=== PATIENT | male | born 1975 | race Caucasian/White ===

== ENCOUNTER 2016-10-04 21:58 | Inpatient (IN) | payer OTHER ==
[~2016-10-04] VITALS: Ht 185.4 cm; Wt 77.1 kg
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
--- NOTE | ~2016-10-04 | CR63 ---
[facility] A Service of [facility] & [facility] RADIOLOGY TEXT RESULTS PATIENT: JAVIER GUZMAN LOCATION: A 201-01 : [birth year] UNIT #: [id number] AGE: [address]: Huy Mills MD SEX: M ORDER DR: [id number] [facility] [address] [place], [place] [address] [id number] I MR#: [id number] Acc #: [id number] NAME: JAVIER GUZMAN : 1975 SEX: M STUDY DATE/TIME: 10/05/2016 7:25 UNIT: [facility] ROOM: 201 STUDY DESCRIPTION: CR Chest 2 View Attending Physician: Huy Mills M.D. Ordering Physician: Bambi Carney M.D. Primary Care Physician: Primary Care Physician No MEDICAL IMAGING REPORT This report is preliminary unless electronic signature is present EXAM Two-view chest INDICATION Fever and chills. Hypernatremia. Shortness of air. FINDINGS Two views of the chest without comparison. Heart and mediastinal contours normal. There is mild pulmonary hyperinflation. No focal consolidation. No pleural effusion. IMPRESSION Mild pulmonary hyperinflation suggesting component of obstructive lung disease. No focal consolidation. Dictated by... Ric Wiggins M.D. THIS IS AN ELECTRONICALLY VERIFIED REPORT Ric Wiggins M.D. at 10/05/2016 2:53 PM JOSH/spenser TD: 10/05/2016 14:00 JOB #: [id number] MEDICAL IMAGING REPORT Page 1 of 1 COPY
--- NOTE | ~2016-10-04 | CT15 ---
[facility] A Service of [facility] & [facility] RADIOLOGY TEXT RESULTS PATIENT: JAVIER GUZMAN LOCATION: [place] [address] : [birth year] UNIT #: [id number] AGE: [address]: Kaya Cameron MD SEX: M ORDER DR: [id number] [address] [id number] [place], [place] [address] [id number] I MR#: [id number] Acc #: [id number] NAME: JAVIER GUZMAN : 1975 SEX: M STUDY DATE/TIME: 10/10/2016 14:05 UNIT: [facility] ROOM: [facility] STUDY DESCRIPTION: CT Angio Chest Attending Physician: Kaya Cameron M.D. Ordering Physician: Hien Chavez M.D. Primary Care Physician: Primary Care Physician No MEDICAL IMAGING REPORT This report is preliminary unless electronic signature is present EXAM CTA chest and abdomen HISTORY Refer below. FINDINGS Please refer to the CTA abdomen report on the same date for complete details. Dictated by... Singh Dobbins M.D. THIS IS AN ELECTRONICALLY VERIFIED REPORT Singh Dobbins M.D. at 10/16/2016 9:10 AM ALIN/maliha TD: 10/11/2016 17:07 JOB #: [id number] MEDICAL IMAGING REPORT Page 1 of 1 COPY
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
--- NOTE | ~2016-10-04 | EKG ---
PATIENT: JAVIER GUZMAN UNIT #: [id number] Ventricular Rate: 106 BPM Atrial Rate: 106 BPM P-R Interval: 134 ms QRS Duration: 90 ms Q-T Interval: 342 ms QTC Calculation(Bezet): 454 ms P Benton: 66 degrees Calculated R Benton: 89 degrees Calculated T Benton: 60 degrees Diagnosis Line: Sinus tachycardia Diagnosis Line: Otherwise normal ECG Diagnosis Line: No previous ECGs available Diagnosis Line: Confirmed by JC CRUZ MD ([id number]) on Diagnosis Line: 10/05/2016 10:35:55 PM INTERPRETING MD: DONNIE
--- NOTE | ~2016-10-04 | CT96 ---
[facility] A Service of [facility] & [facility] RADIOLOGY TEXT RESULTS PATIENT: JAVIER GUZMAN LOCATION: C2A 201-01 : [birth year] UNIT #: [id number] AGE: [address]: Huy Mills MD SEX: M ORDER DR: [id number] [facility] [address] [place], [place] [address] [id number] I MR#: [id number] Acc #: [id number] NAME: JAVIER GUZMAN : 1975 SEX: M STUDY DATE/TIME: 10/04/2016 23:58 UNIT: C2A ROOM: 201 STUDY DESCRIPTION: CT Lumbar Spine W Cont Attending Physician: Bambi Carney M.D. Ordering Physician: Marco Blas M.D. Primary Care Physician: Primary Care Physician No MEDICAL IMAGING REPORT This report is preliminary unless electronic signature is present EXAM Lumbar spine CT 10/04 23:58 INDICATION Fever and low back pain for 4-5 days. TECHNIQUE Axial images were obtained through the lumbar spine following IV contrast administration. Multiplanar reformats were obtained. No comparison. This CT examination was performed with one or more of the following radiation dose reduction techniques: automatic exposure control, adjustment of mA and/or kV according to patient size, and iterative reconstruction. FINDINGS There are no fractures. Alignment is normal in the sagittal plane. There is mild levoscoliosis. No clear abnormal enhancement is identified. At L5-S1, there is a broad-based posterior disc bulge with bilateral facet arthropathy. This results in mild bilateral foraminal stenosis. At L4-5, there is bilateral facet arthropathy and ligamentum flavum hypertrophy. There is a broad-based posterior disc bulge with a more focal right posterolateral disc herniation. This is causing severe central canal stenosis to the right of midline and is also narrowing both foramina to at least a moderate degree. This is presumably the symptomatic level. At L3-4, there is a mild broad-based posterior disc bulge. There is facet arthropathy and ligamentum flavum hypertrophy. There is very mild narrowing of both foramina. At L2-3, there is facet disease and ligamentum flavum hypertrophy. [facility] A Service of [facility] & [facility] RADIOLOGY TEXT RESULTS PATIENT: JAVIER GUZMAN LOCATION: A 201-01 : [birth year] UNIT #: [id number] AGE: [address]: Huy Mills MD SEX: M ORDER DR: Minimal disc bulge. No significant central canal or foraminal stenosis. At L1-2, the disc is normal. There is some mild facet disease. IMPRESSION 1. No fracture or malalignment. 2. There is a broad-based disc bulge at L4-5 with a more focal right posterolateral herniation. This is causing severe right-side central canal stenosis in addition to bilateral neural foraminal narrowing. This is presumably the symptomatic level. 3. Multilevel degenerative disc disease and facet arthropathy as detailed above. 4. No pathologic contrast enhancement. 5. Findings could be further assessed with outpatient lumbar MRI if clinically indicated. Dictated by... Victoriano Perez Jr., M.D. THIS IS AN ELECTRONICALLY VERIFIED REPORT Victoriano Perez Jr., M.D. at 10/06/2016 4:22 AM LAWANDA/rteva TD: 10/05/2016 06:59 JOB #: [id number] MEDICAL IMAGING REPORT Page 1 of 1 COPY
--- NOTE | ~2016-10-04 | MR112 ---
[facility] A Service of [facility] RADIOLOGY TEXT RESULTS PATIENT: JAVIER GUZMAN LOCATION: [facility]-01 : [birth year] UNIT #: [id number] AGE: [address]: Huy Mills MD SEX: M ORDER DR: [id number] [facility] [address] [place], [place] [address] [id number] I MR#: [id number] Acc #: [id number] NAME: JAVIER GUZMAN : 1975 SEX: M STUDY DATE/TIME: 10/05/2016 11:17 UNIT: C2A ROOM: 201 STUDY DESCRIPTION: MR Lumbar WWo Contrast Attending Physician: Huy Mills M.D. Ordering Physician: Bambi Carney M.D. Primary Care Physician: No Primary Care Physician MRI CENTER REPORT This report is preliminary unless electronic signature is present. EXAM Lumbar spine MRI with and without contrast. DATE OF STUDY 10/05/2016 PROCEDURE Routine lumbar spine MRI with and without contrast. COMPARISON CT lumbar spine, 10/04/2016. CLINICAL HISTORY Fever and low back pain for 4-5 days, primarily right-sided. FINDINGS There is a slight levoscoliosis, possibly positional. Alignment is otherwise normal. Bone marrow signal is normal and the distal cord and conus are normal in position and appearance. At 1-2, and 2-3, the discs, canal and foramina are normal. At 3-4, the disc as well preserved. There is some mild facet arthropathy. There is no canal stenosis, and there is no right and borderline left foraminal narrowing. At 4-5, there is a right paracentral disc protrusion. There is mild overall canal stenosis with particular impingement on the right-sided lower lumbar nerve roots. The L4 root escapes above this, but there is heavy lateral recess impingement. There is mild right foraminal stenosis and borderline left foraminal narrowing. At L5-S1, there is a slight disc bulge, but no canal stenosis. There is slight, if any, left lateral recess compromise. There is [facility] A Service of [facility] RADIOLOGY TEXT RESULTS PATIENT: JAVIER GUZMAN LOCATION: B 450- : [birth year] UNIT #: [id number] AGE: [address]: Huy Mills MD SEX: M ORDER DR: [id number] left and no right foraminal stenosis. No areas of abnormal enhancement are seen. IMPRESSION Right paracentral disc protrusion at 4-5 with nerve root impingement particularly in the lateral recess and mild canal stenosis, tiny left paracentral protrusion at 5-1 with possible slight left lateral recess compromise. Dictated by... Tee Rendon M.D. THIS IS AN ELECTRONICALLY VERIFIED REPORT Tee Rendon M.D. at 10/07/2016 4:50 PM GISELL/traci TD: 10/05/2016 15:50 JOB #: [id number] MRI CENTER REPORT Page 1 of 1 COPY
--- NOTE | ~2016-10-04 | CT2 ---
[facility] A Service of [facility] & [facility] RADIOLOGY TEXT RESULTS PATIENT: JAVIER GUZMAN LOCATION: C2A 201- : 73 UNIT #: [id number] AGE: [address]: Huy Mills MD SEX: M ORDER DR: [id number] [facility] [address] [place], [place] [address] [id number] I MR#: [id number] Acc #: [id number] NAME: JAVIER GUZMAN : 1975 SEX: M STUDY DATE/TIME: 10/04/2016 23:55 UNIT: C2A ROOM: 201 STUDY DESCRIPTION: CT Abd and Pelv W Cont Attending Physician: Bambi Carney M.D. Ordering Physician: Marco Blas M.D. Primary Care Physician: Primary Care Physician No MEDICAL IMAGING REPORT This report is preliminary unless electronic signature is present EXAM CT abdomen and pelvis 10/04 23:55 INDICATION Fever, low back pain worse on the right side. Pain over the last 4-5 days. Left side abdominal pain. TECHNIQUE Axial images were obtained through the abdomen and pelvis following IV contrast administration. Multiplanar reformats were obtained. No comparison. This CT examination was performed with one or more of the following radiation dose reduction techniques: automatic exposure control, adjustment of mA and/or kV according to patient size, and iterative reconstruction. FINDINGS ABDOMEN: There is some dependent atelectasis in the right lower lobe. Spleen is enlarged with a clcz-mo-loxp length of 15 cm. Remaining solid organs are normal. GI tract evaluation is limited by the lack of oral contrast as well as the lack of intraabdominal fat as a natural contrast medium. No bowel obstruction is seen. No definite free fluid. Gallbladder is unremarkable and there is no biliary obstruction. PELVIS: Urinary bladder is normal. Unopacified GI tract grossly normal. The appendix is normal. For a description of findings in the lumbar spine, please see the L-spine CT report dictated separately. IMPRESSION 1. Splenomegaly. 2. GI tract evaluation is limited by both the lack of oral contrast as well as the lack of intraabdominal fat as a natural contrast medium. Unopacified GI tract is grossly normal. No bowel obstruction or definitive bowel wall thickening is seen. The appendix is normal. [facility] A Service of [facility] RADIOLOGY TEXT RESULTS PATIENT: JAVIER GUZMAN LOCATION: [facility] 201-01 : [birth year] UNIT #: [id number] AGE: [address]: Huy Mills MD SEX: M ORDER DR: 3. The remainder of the abdomen and pelvis CT is within normal limits as well. There is some minimal right lower lobe atelectasis. Dictated by... Victoriano Perez Jr., M.D. THIS IS AN ELECTRONICALLY VERIFIED REPORT Victoriano Perez Jr., M.D. at 10/06/2016 4:22 AM LAWANDA/treva TD: 10/05/2016 06:55 JOB #: [id number] MEDICAL IMAGING REPORT Page 1 of 1 COPY
--- NOTE | ~2016-10-04 | DS ---
Unit #: [id number] #: [id number] Patient: JAVIER GUZMAN [id number] [address] [address] [id number] I MR#: [id number] NAME: JAVIER GUZMAN ROOM: 463 Age: 40 Sex: M Admission Date: 10/05/2016 : 1975 Discharge Date: 10/11/2016 Attending Physician: Kaya Cameron M.D. Primary Care Physician: No Primary Care Physician DISCHARGE SUMMARY PRINCIPAL DIAGNOSES 1. Methicillin-sensitive Staphylococcus aureus bacteremia with associated bilateral septic pulmonary emboli. 2. Intravenous drug use. 3. Polysubstance abuse including amphetamine, marijuana and heroin. 4. Hypovolemic hyponatremia now resolved. 5. Mild cellulitis of right ankle now resolved. 6. Tobaccoism. 7. Homelessness. CONSULTANTS 1. Dr. Cyr, infectious disease. 2. Dr. Chavez, cardiology. PROCEDURES 1. JALYN, on October 10, 2016 with an ejection fraction of 50% to 55%. Mild tricuspid regurgitation noted. No evidence of vegetation. No clot in the left atrial appendage. Moderate atherosclerotic plaque in the aorta. Mildly dilated aortic root. 2. CT scan of the abdomen and pelvis with dilatation of the aortic root at 4.7 cm. There is no obvious evidence of abscess. Bilateral septic pulmonary emboli were noted. 3. CT scan of abdomen and pelvis with contrast on October 04, [address] of the lumbar spine with contrast on October 04, 2016 with a broad-based disk bulge at L4-L5 with more focal right posterolateral herniation. This is causing right-sided central canal stenosis and bilateral neural foraminal narrowing. 5. Chest x-ray on October 05, 2016 with pulmonary hyperinflation. 6. MRI of lumbar spine with and without contrast on October 05, 2016 with right paracentral disc protrusion at L4-5 with nerve impingement in the lateral recess and mild canal stenosis. CLINICAL HISTORY AND HOSPITAL COURSE Mr. Guzman is a 40-year-old male who presents to the emergency department with back pain. He also has a history of IV drug use. In the emergency department he was found to be hyponatremic with a sodium level of 118. A urine drug screen was positive for opiates, marijuana and amphetamines. A CT scan of the lumbar spine revealed a degenerative disk disease but no other acute findings. Patient was subsequently admitted. In regard to the patient's complaints of back pain, he did undergo MRI of the lumbar spine given his IV drug abuse. There is no evidence of Unit #: [id number] #: [id number] Patient: JAVIER GUZMAN abscess. His back pain is currently resolved. Blood cultures done upon admission did ultimately grow methicillin-sensitive Staph aureus and the patient was initially placed on vancomycin and antibiotics have subsequently been changed to nafcillin by ID. Blood cultures from October 06 have been negative. Plan is for patient to complete two weeks of IV Rocephin as an outpatient at short stay. In regard to the patient's hyponatremia, with IV fluids this has resolved. The patient is agreeable to some treatment on an outpatient basis and will be discharged home later today. DISCHARGE CONDITION Stable. DISCHARGE STATUS Discharge to home with plans for IV antibiotic via short stay. DISCHARGE MEDICATIONS Rocephin 2 g IV q.24 h. through October 19, 2016. DISCHARGE INSTRUCTIONS 1. The patient was instructed to follow a regular diet. 2. He can increase his activity as tolerated. 3. He is to refrain from any further tobacco and/or illicit drug use. FOLLOWUP 1. The patient needs a followup CBC and BMP done in short stay on Monday October 17, 2016. 2. He will follow up with the PCP of his choice in two weeks. Dictated by... Kaya Cameron M.D. CAT/katherine TD: 10/11/2016 15:41 JOB #: [id number] DISCHARGE SUMMARY Page 1 of 1 X Kaya Cameron MD X DISCHARGE SUMMARY
--- NOTE | ~2016-10-04 | CT13 ---
[facility] A Service of [facility] & [facility] RADIOLOGY TEXT RESULTS PATIENT: JAVIER GUZMAN LOCATION: [facility] 463-01 : [birth year] UNIT #: [id number] AGE: [address]: Kaya Cameron MD SEX: M ORDER DR: [id number] [facility]. [place], [place] [address] [id number] I MR#: [id number] Acc #: [id number] NAME: JAVIER GUZMAN : 1975 SEX: M STUDY DATE/TIME: 10/10/2016 14:05 UNIT: [facility] ROOM: [facility] STUDY DESCRIPTION: CT Angio Abdomen Attending Physician: Kaya Cameron M.D. Ordering Physician: Hien Chavez M.D. Primary Care Physician: Primary Care Physician No MEDICAL IMAGING REPORT This report is preliminary unless electronic signature is present EXAM CT angiogram of the chest and abdomen INDICATIONS Shortness of breath. Fever. Low back pain. Symptoms since September 29. Staph aureus bacteremia. Abnormal JALYN showing aortic root aneurysm or abscess. TECHNIQUE CT angiogram of the chest was performed following the administration of IV contrast. Coronal and sagittal reformatted images were obtained. This CT exam was performed with one or more of the following radiation dose reduction techniques: automatic exposure control, adjustment of mA and/or kV according to patient size, and iterative reconstruction. COMPARISON STUDIES CT abdomen and pelvis from 10/04/2016. FINDINGS The aortic root is dilated measuring approximately 4.7 cm in greatest dimension. The ascending aorta is within normal limits. The descending thoracic aorta is within normal limits. The left vertebral artery arises directly off the aorta, a normal variant. Visualized great vessels are unremarkable. No definite evidence for abscess. No evidence for a pericardial effusion. No evidence for mediastinal collection. No lymphadenopathy. Evaluation of the lungs shows multiple pulmonary nodules bilaterally. Some of these have cavitations and some have some ground-glass haziness around the periphery of the nodules. Given the patient's history of Staph aureus bacteremia, these are most subjective of septic pulmonary emboli. The dominant nodule is located in the right lower lobe measuring 1.4 cm. STS. [facility] A Service of [facility] & [facility] RADIOLOGY TEXT RESULTS PATIENT: JAVIER GUZMAN LOCATION: [place] [address] : [birth year] UNIT #: [id number] AGE: [address]: Kaya Cameron MD SEX: M ORDER DR: ABDOMEN: The abdominal aorta is non-aneurysmal. The celiac artery and SMA are patent. The renal arteries are patent. The liver is unremarkable. The gallbladder is unremarkable. The spleen is unremarkable. The left kidney is unremarkable. There is a tiny cyst in the right kidney. The adrenal glands are unremarkable. The pancreas is unremarkable. The bone windows are unremarkable. IMPRESSION 1. Dilated aortic root measuring 4.7 cm in greatest dimension. No definite evidence for any abscess. 2. Multiple bilateral pulmonary nodules, some with central cavitations and others with some surrounding ground-glass opacification, most suggestive of septic pulmonary emboli given the patient's clinical history. Dominant nodule is in the right lower lobe measuring 1.4 cm. 3. Additional findings as described. Dictated by... Singh Dobbins M.D. THIS IS AN ELECTRONICALLY VERIFIED REPORT Singh Dobbins M.D. at 10/12/2016 5:31 PM ALIN/maliha TD: 10/11/2016 16:59 JOB #: [id number] MEDICAL IMAGING REPORT Page 1 of 1 COPY
[2016-10-04 22:45] LABS: URINE SOURCE CLEAN CATCH
[2016-10-04 22:48] LABS: BASOPHIL% 0.3 % (0-2.5); EOSINOPHIL% 0.1 % (0.0-7.0); HEMATOCRIT 44.1 % (38.0-50.0); HEMOGLOBIN 15.1 gm/dL (13.0-16.0); LYMPHOCYTE# 0.5 X10e3 (1.0-3.5); LYMPHOCYTE% 5.2 % (17.0-45.0); MEAN CELL VOLUME 87.2 FL (83-96); MEAN CORPUSCULAR HGB CONC 34.3 g/dL (30-36); MEAN PLATELET VOLUME 8.5 FL (6.5-11.5); MONOCYTE# 0.7 X10e3 (0-1.0); NEUTROPHIL# 8.6 X10e3 (1.5-7.1); NEUTROPHIL% 87.4 % (40-75); PLATELET COUNT 149 X10e3 (140-420); RED BLOOD COUNT 5.06 X10e (3.90-5.60); RED CELL DISTRIBUTION WIDTH 12.9 % (11.0-15.5); WHITE BLOOD COUNT 9.8 X10e3 (4.0-10.5)
[2016-10-04 22:50] LABS: URINE APPEARANCE CLEAR; URINE BLOOD 1+ (NEG); URINE COLOR DK YELLOW; URINE GLUCOSE NEG (NEG); URINE KETONE TRACE (NEG); URINE LEUKOCYTE ESTERASE TRACE (NEG); URINE NITRATE NEG (NEG); URINE PH 5.5 (5-8); URINE PROTEIN 2+ (NEG); URINE SPECIFIC GRAVITY 1.024 (1.003-1.035)
[2016-10-04 22:52] LABS: DIFF IND NO
[2016-10-04 22:53] LABS: URINE BACTERIA AUWI NEG (NEGATIVE); URINE SQUAMOUS EPITHELIAL CELL OCC /[HPF]
[2016-10-04 22:55] LABS: CULTURE INDICATED? NO; URINE BILIRUBIN NEG (NEG)
[2016-10-04 23:00] LABS: AMPHETAMINE POS (NEG); BARBITURATES NEG (NEG); BENZODIAZEPINES NEG (NEG); COCAINE NEG (NEG); MARIJUANA POS (NEG); OPIATES POS (NEG); TRICYCLIC ANTIDEPRESSANTS NEG (NEG); U METHADONE NEG (NEG)
[2016-10-04 23:05] LABS: U HYALINE CASTS AUWI 0-2 /[LPF]
[2016-10-04 23:16] LABS: ALBUMIN SERUM 3.8 g/dL (3.5-5.0); BILIRUBIN, DIRECT 0.6 mg/dL (0.0-0.2); BILIRUBIN,INDIRECT 1.1 mg/dL (0.0-0.9); BILIRUBIN,TOTAL 1.7 mg/dL (0.2-2.0); BUN/CREATININE RATIO 10.9; CALCIUM SERUM 8.2 mg/dL (8.4-10.2); CREATININE SERUM 1.1 mg/dL (0.6-1.4); GLOM FILT RATE Estimated 82.4 mL/min (>60); POTASSIUM 3.4 mmol/L (3.5-5.1); PROTEIN TOTAL SERUM 7.6 g/dL (6.0-8.3)
[2016-10-05 08:23] LABS: BASOPHIL# 0.1 X10e3 (0-0.3); EOSINOPHIL% 0.3 % (0.0-7.0); HEMOGLOBIN 13.5 gm/dL (13.0-16.0); LYMPHOCYTE# 0.2 X10e3 (1.0-3.5); LYMPHOCYTE% 2.2 % (17.0-45.0); MEAN CORPUSCULAR HEMOGLOBIN 30.2 PG (28-34); MEAN CORPUSCULAR HGB CONC 34.7 g/dL (30-36); MEAN PLATELET VOLUME 8.5 FL (6.5-11.5); MONOCYTE# 0.7 X10e3 (0-1.0); MONOCYTE% 7.5 % (3.0-12.0); NEUTROPHIL# 8.7 X10e3 (1.5-7.1); PLATELET COUNT 118 X10e3 (140-420); RED BLOOD COUNT 4.48 X10e (3.90-5.60); RED CELL DISTRIBUTION WIDTH 12.9 % (11.0-15.5); WHITE BLOOD COUNT 9.8 X10e3 (4.0-10.5)
[2016-10-05 08:27] LABS: DIFF IND NO
[2016-10-05 08:55] LABS: BUN/CREATININE RATIO 16.66; CALCIUM SERUM 7.6 mg/dL (8.4-10.2); CREATININE SERUM 0.9 mg/dL (0.6-1.4); MAGNESIUM 1.4 mg/dL (1.6-3.0)
[2016-10-05 09:00] LABS: POTASSIUM 2.9 mmol/L (3.5-5.1)
[2016-10-06 06:15] LABS: HEMATOCRIT 36.9 % (38.0-50.0); HEMOGLOBIN 12.9 gm/dL (13.0-16.0); MEAN CELL VOLUME 86.8 FL (83-96); MEAN CORPUSCULAR HEMOGLOBIN 30.4 PG (28-34); MEAN CORPUSCULAR HGB CONC 35.1 g/dL (30-36); MEAN PLATELET VOLUME 8.5 FL (6.5-11.5); RED BLOOD COUNT 4.25 X10e (3.90-5.60); RED CELL DISTRIBUTION WIDTH 13.1 % (11.0-15.5); WHITE BLOOD COUNT 6.9 X10e3 (4.0-10.5)
[2016-10-06 07:39] LABS: BUN/CREATININE RATIO 13.33; CALCIUM SERUM 7.8 mg/dL (8.4-10.2); CREATININE SERUM 0.6 mg/dL (0.6-1.4); GLOM FILT RATE Estimated 124.1 mL/min (>60); MAGNESIUM 1.9 mg/dL (1.6-3.0); POTASSIUM 3.2 mmol/L (3.5-5.1)
[2016-10-07 07:31] LABS: HEMOGLOBIN 13.3 gm/dL (13.0-16.0); MEAN CELL VOLUME 88.5 FL (83-96); MEAN CORPUSCULAR HEMOGLOBIN 30.1 PG (28-34); MEAN CORPUSCULAR HGB CONC 34.1 g/dL (30-36); MEAN PLATELET VOLUME 8.5 FL (6.5-11.5); RED BLOOD COUNT 4.41 X10e (3.90-5.60); RED CELL DISTRIBUTION WIDTH 13.3 % (11.0-15.5); WHITE BLOOD COUNT 5.9 X10e3 (4.0-10.5)
[2016-10-07 08:00] LABS: BUN/CREATININE RATIO 8.57; CALCIUM SERUM 8.1 mg/dL (8.4-10.2); CREATININE SERUM 0.7 mg/dL (0.6-1.4); GLOM FILT RATE Estimated 116.4 mL/min (>60); MAGNESIUM 1.7 mg/dL (1.6-3.0); POTASSIUM 3.7 mmol/L (3.5-5.1)
[2016-10-08 04:01] LABS: CALCIUM SERUM 8.2 mg/dL (8.4-10.2); CREATININE SERUM 0.7 mg/dL (0.6-1.4); GLOM FILT RATE Estimated 116.4 mL/min (>60); MAGNESIUM 1.8 mg/dL (1.6-3.0); POTASSIUM 3.9 mmol/L (3.5-5.1)
[2016-10-09 08:59] LABS: MAGNESIUM 1.4 mg/dL (1.6-3.0)
[2016-10-10 04:37] LABS: CALCIUM SERUM 8.1 mg/dL (8.4-10.2); CREATININE SERUM 0.7 mg/dL (0.6-1.4); GLOM FILT RATE Estimated 116.4 mL/min (>60); POTASSIUM 4.8 mmol/L (3.5-5.1)
[2016-10-11] MEDS ORDERED: ROCEPHIN IV (18:01)
== END 2016-10-11 18:10 | disposition home or self-care (01) | DRG 551 ==
LOC: CED 21:58 → C4B 10-05 01:20 → CEDOF 10-05 01:20 → C2A 10-05 01:24 → CEDOF 10-05 01:24 → CED 10-05 01:24 → C2A 10-05 02:21 → CEDOF 10-05 02:21 → C2A 10-05 07:48 → C4B 10-07 06:02 → C4C 10-11 10:06
PROVIDERS: Emergency Medicine; Internal Medicine; Internal Medicine Cardiovascular Disease
PROC: B24BZZZ Ultrasonography of Heart with Aorta (ICD-10-PCS; principal; 2016-10-05)
PROC: B24BZZ4 Ultrasonography of Heart with Aorta, Transesophageal (ICD-10-PCS; 2016-10-10)
PROC: B32TYZZ Computerized Tomography (CT Scan) of Left Pulmonary Artery using Other Contrast (ICD-10-PCS; 2016-10-10)
PROC: B32SYZZ Computerized Tomography (CT Scan) of Right Pulmonary Artery using Other Contrast (ICD-10-PCS; 2016-10-10)
DX: M51.26 Other intervertebral disc displacement, lumbar region (principal); I26.90 Septic pulmonary embolism without acute cor pulmonale; E87.1 Hypo-osmolality and hyponatremia; L03.115 Cellulitis of right lower limb; E83.42 Hypomagnesemia; B95.61 Methicillin susceptible Staphylococcus aureus infection as the cause of diseases classified elsewhere; F15.10 Other stimulant abuse, uncomplicated; F12.10 Cannabis abuse, uncomplicated; F11.10 Opioid abuse, uncomplicated; F17.200 Nicotine dependence, unspecified, uncomplicated; Z59.0 Homelessness; R23.3 Spontaneous ecchymoses; E87.6 Hypokalemia
CPT/HCPCS: 36415; 71020; 71275; 72132; 72158; 74175; 74177; 80048; 80076; 80202; 80307; 81003; 82550; 83605; 83690; 83735; 84132; 84300; 84439; 84443; 84481; 85025; 85027; 87040; 87045; 87077; 87177; 87186; 87209; 87427; 87493; 87806; 87899; 93005; 93306; 93312; 96361; 96374; 99285; A9577; J0690; J0696; J1885; J2250; J2550; J3010; J3370; J3475; Q9967

== ENCOUNTER → 2016-10-12 | Emergency (ER) | payer OTHER ==
[~2016-10-12] VITALS: Ht 185.4 cm; Wt 77.1 kg
[~2016-10-12] MED LIST: ROCEPHIN IV
== END | disposition home or self-care (01) ==
LOC: CED 01:22
DX: R51 Headache (principal); F17.210 Nicotine dependence, cigarettes, uncomplicated; Z79.899 Other long term (current) drug therapy; Z98.890 Other specified postprocedural states
CPT/HCPCS: 96372; 99284; J1885

== ENCOUNTER → 2016-10-12 | Outpatient (CLI) | payer OTHER | END | disposition home or self-care (01) | LOC: CSSDAY 08:36 | DX: R78.81 Bacteremia (principal); B95.61 Methicillin susceptible Staphylococcus aureus infection as the cause of diseases classified elsewhere; I26.90 Septic pulmonary embolism without acute cor pulmonale | CPT/HCPCS: 96374; J0696 ==

== ENCOUNTER → 2016-10-13 | Outpatient (CLI) | payer OTHER | END | disposition home or self-care (01) | LOC: CSSDAY 08:17 | DX: R78.81 Bacteremia (principal); B95.61 Methicillin susceptible Staphylococcus aureus infection as the cause of diseases classified elsewhere; I26.90 Septic pulmonary embolism without acute cor pulmonale | CPT/HCPCS: 96374; J0696 ==

== ENCOUNTER → 2016-10-15 | Outpatient (CLI) | payer OTHER | END | disposition home or self-care (01) | LOC: CSSDAY 09:00 | DX: D17.1 Benign lipomatous neoplasm of skin and subcutaneous tissue of trunk (principal) | CPT/HCPCS: 96374; J0696 ==